=== PATIENT | female | born 1975 | race Hispanic/Latino ===

== ENCOUNTER 2017-06-07 16:54 | Emergency (ER) | payer MEDICAID ==
[2017-06-07 17:10] VITALS: BMI 40.1
[2017-06-07 17:13] VITALS: RESP 18; TEMP 97.8; O2SAT 98
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
[2017-06-07] MEDS ORDERED: Amoxicillin-Clav 875-125 mg Tab PO STA (17:30)
[2017-06-07] MEDS ORDERED: Amoxicillin-Clav 875-125 mg Tab PO ONE (17:44)
[2017-06-07] MEDS ORDERED: Bacitracin 500 Units/gm Oint Foilpak UD ONE (17:51)
[2017-06-07 17:57] VITALS: BP 126/75; PULSE 72
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
== END 2017-06-07 17:57 | disposition home or self-care (01) ==
LOC: C.ER 16:54
DX: S61.411A Laceration without foreign body of right hand, initial encounter (principal); W26.0XXA Contact with knife, initial encounter

== ENCOUNTER 2018-01-18 16:21 | Emergency (ER) | payer MEDICAID, OTHER ==
[2018-01-18 16:21] VITALS: BMI 40.9
[2018-01-18] MEDS ORDERED: Iohexol 240 (50 ml) PO STA (17:01)
[2018-01-18] MEDS ORDERED: Sodium Chloride 0.9% 1,000 ML IV ONE (17:01)
[2018-01-18 17:23] LABS: BASO # 0.1 K/uL (0.0-0.2); BASO % 0.5 % (0.0-2.0); EOS % 0.2 % (0.0-4.0); HEMOGLOBIN 13.2 g/dL (11.0-16.0); LYMPH % 14.1 % (20.0-40.0); MEAN CELL VOLUME 82.1 fL (81.0-99.0); MEAN CORPUSCULAR HEMOGLOBIN 27.9 pg (27.0-31.0); MEAN PLATELET VOLUME 7.6 fL (7.2-11.7); MONO # 0.6 K/uL (0.0-0.8); MONO % 4.2 % (0.0-10.0); NEUT # 11.2 K/uL (1.8-7.0); NRBC % 0.1 % (0.0-2.0); RBC 4.74 Mil/uL (3.80-5.20); WHITE BLOOD COUNT 13.9 K/uL (4.8-10.8)
[2018-01-18] MEDS ORDERED: Iohexol 240 (50 ml) ONE (17:34)
[2018-01-18] MEDS ORDERED: Sodium Chloride 0.9% 1,000 ML ONE (17:35)
--- NOTE | 2018-01-18 17:36 | C.PDOC ---
History Of Present Illness <NovaRoxana A - Last Filed: 01/18/18 18:47> <Ariane Bridges - Last Filed: 01/18/18 21:36> 42 y/o female with history of Endometriosis presents to ED sent by Dr. Church to rule out appendicitis. Patient states she has been having nausea, vomiting, fever and abdominal pain for 1 day. Patient has had surgery in past for Endometriosis and denies back pain, dysuria, diarrhea or any other complaints at this time. (Roxana Bhatt) History Per: Patient History/Exam Limitations: no limitations Onset/Duration Of Symptoms: Days Current Symptoms Are (Timing): Still Present Location Of Pain/Discomfort: Suprapubic <Roxana Bhatt - Last Filed: 01/18/18 18:47> <Ariane Bridges - Last Filed: 01/18/18 21:36> Time Seen by Provider: 01/18/18 16:55 Chief Complaint (Nursing): Abdominal Pain Past Medical History Reviewed: Historical Data, Nursing Documentation, Vital Signs - Medical History PMH: HTN Surgical History: No Surg Hx Family History: States: No Known Family Hx - Social History Hx Tobacco Use: No Hx Alcohol Use: Yes Hx Substance Use: No - Immunization History Hx Tetanus Toxoid Vaccination: Yes Hx Influenza Vaccination: No Hx Pneumococcal Vaccination: No <Roxana Bhatt - Last Filed: 01/18/18 18:47> Vital Signs: Last Vital Signs Temp 99.8 F H 01/18/18 20:53 Pulse 100 H 01/18/18 20:53 Resp 20 01/18/18 20:53 BP 95/57 L 01/18/18 20:53 Pulse Ox 100 01/18/18 20:53 Review Of Systems Constitutional: Positive for: Fever. Negative for: Chills Gastrointestinal: Positive for: Nausea, Vomiting, Abdominal Pain Genitourinary: Negative for: Dysuria, Vaginal Bleeding Skin: Negative for: Rash <Roxana Bhatt - Last Filed: 01/18/18 18:47> Physical Exam - Physical Exam Appears: Non-toxic, No Acute Distress Skin: Warm, Dry, No Rash Head: Atraumatic, Normacephalic Eye(s): bilateral: Normal Inspection Oral Mucosa: Moist Neck: Normal ROM, Supple Cardiovascular: Rhythm Regular Respiratory: Normal Breath Sounds, No Rales, No Rhonchi, No Wheezing Gastrointestinal/Abdominal: Soft, Tenderness (diffuse low abdominal), No Guarding, No Rebound Back: No CVA Tenderness, No Paraspinal Tenderness Neurological/Psych: Oriented x3, Normal Speech, Normal Cognition <Roxana Bhatt - Last Filed: 01/18/18 18:47> ED Course And Treatment - Laboratory Results Result Diagrams: 01/18/18 17:18 01/18/18 17:18 O2 Sat by Pulse Oximetry: 96 (RA) Pulse Ox Interpretation: Normal <Roxana Bhatt - Last Filed: 01/18/18 18:47> - Laboratory Results Result Diagrams: 01/18/18 17:18 01/18/18 17:18 Lab Interpretation: Abnormal (WBC 13.9) - CT Scan/US CT abd/pelvis' Other Rad Studies (CT/US): Read By Radiologist, Radiology Report Reviewed CT/US Interpretation: EXAM: CT Abdomen and Pelvis With Intravenous Contrast. CLINICAL HISTORY: 42 years old, female; Pain; Abdominal pain; Generalized. TECHNIQUE: Axial computed tomography images of the abdomen and pelvis with intravenous. contrast. All CT scans at this facility use at least one of these dose optimization techniques: automated exposure control; mA and/or kV adjustment per patient size (includes targeted exams. where dose is matched to clinical indication); or iterative reconstruction. Coronal and sagittal. reformatted images were created and reviewed. CONTRAST: 100 mL of VISIPAQUE was administered intravenously. COMPARISON: No relevant prior studies available. FINDINGS: Lung bases: Unremarkable. No mass. No consolidation. ABDOMEN: Liver: Unremarkable. No mass. Gallbladder and bile ducts: Unremarkable. No calcified stones. No ductal dilation. Pancreas: Unremarkable. No mass. No ductal dilation. Spleen: Unremarkable. No splenomegaly. Adrenals: Unremarkable. No mass. Kidneys and ureters: 5.4 cm simple-appearing left renal cyst. Large simple cyst upper pole left kidney. Probable tiny nonobstructing stone mid right kidney. Stomach and bowel: Unremarkable. No obstruction. No mucosal thickening. PELVIS: Appendix: Normal appendix. Bladder: Unremarkable. No mass. Reproductive: Unremarkable as visualized. ABDOMEN and PELVIS: Intraperitoneal space: Free fluid in the low pelvis possibly physiologic. No free air. Bones/joints: No acute fracture. No dislocation. Soft tissues: Unremarkable. Vasculature: Unremarkable. No abdominal aortic aneurysm. Lymph nodes: Scattered retroperitoneal lymph nodes within normal limits in size. IMPRESSION: 5.4 cm simple-appearing left renal cyst. Free fluid in the pelvis adjacent to the left ovary which may. be physiologic related to rupture of a cyst. Ultrasound evaluation could be performed if indicated. Reevaluation Time: 21:31 Reassessment Condition: Improved (but still having bilateral lower pelvic pain. Patient states that she has an appt with Dr Agee next week for evaluation of a large ovarian cyst.) <Ariane Bridges - Last Filed: 01/18/18 21:36> Disposition - Disposition Disposition Time: 19:00 - POA Present On Arrival: None <Roxana Bhatt - Last Filed: 01/18/18 18:47> - Disposition Disposition Time: 21:33 <Ariane Bridges - Last Filed: 01/18/18 21:36> - Disposition Referrals: Jean Paul Agee MD [Staff Provider] - Disposition: HOME/ ROUTINE Condition: STABLE Prescriptions: Naproxen [Naprosyn] 1 tab PO BID PRN #25 tab PRN Reason: Pain Instructions: Acute Pelvic Pain (DC) Forms: [employer] (Mongolian) - Clinical Impression Clinical Impression: Pelvic pain - PA / QUALITY ASSURANCE / Resident Statement MD/DO has reviewed & agrees with the documentation as recorded. - Scribe Statement The provider has reviewed the documentation as recorded by the Scribe <Roxana Bhatt - Last Filed: 01/18/18 18:47> <Ariane Bridges - Last Filed: 01/18/18 21:36> - Scribe Statement Sidra Dahl \ All medical record entries made by the Scribe were at my direction and personally dictated by me. I have reviewed the chart and agree that the record accurately reflects my personal performance of the history, physical exam, medical decision making, and the department course for this patient. I have also personally directed, reviewed, and agree with the discharge instructions and disposition. (Roxana Bhatt) Physician Patient Turnover Patient Signed Over To: Ariane Bridges Handoff Comments: Pending CT abdomen/pelvis. R/O AP <Roxana Bhatt - Last Filed: 01/18/18 18:47>
[2018-01-18 17:48] LABS: ALB/GLOB RATIO 1.3 (1.0-2.1); ALBUMIN 4.4 g/dL (3.5-5.0); ALT/SGPT 27 U/L (9-52); AST/SGOT 15 U/L (14-36); BLOOD UREA NITROGEN 15 mg/dL (7-17); CALCIUM 9.1 mg/dl (8.6-10.4); GFR AFRICAN-AMERICAN > 60; GFR NON-AFRICAN AMERICAN > 60; LIPASE 32 U/L (23-300)
[2018-01-18 17:48] LABS: SQUAMOUS EPITHIAL 13 /hpf (0-5); URINE BILIRUBIN NEGATIVE (NEGATIVE); URINE BLOOD NEGATIVE (NEGATIVE); URINE CLARITY Clear (Clear); URINE COLOR Amber (YELLOW); URINE GLUCOSE (UA) NORMAL (Normal); URINE LEUKOCYTE ESTERASE NEG Leu/uL (Negative); URINE PROTEIN NEGATIVE (NEGATIVE); URINE UROBILINOGEN NORMAL mg/dL (0.2-1.0)
[2018-01-18 17:50] LABS: HCG,QUALITATIVE URINE NEGATIVE (NEGATIVE)
[2018-01-18] MEDS ORDERED: Iodixanol 320 MG/ML 100 ML BOTTLE IV ONE (18:14)
[2018-01-18] MEDS ORDERED: Morphine 4 MG/ML VIAL ONE (18:46)
[2018-01-18 21:46] VITALS: BP 104/63; PULSE 105; RESP 18; TEMP 101.1; O2SAT 99
[2018-01-18] MEDS ORDERED: cefTRIAXone 1 gm in Water For Injection 2.1 ML IM ONE (21:52)
--- NOTE | 2018-01-19 09:17 | CT ---
PROCEDURE: CT Abdomen and Pelvis without intravenous contrast HISTORY: Abdominal pain COMPARISON: None. TECHNIQUE: Multiple contiguous axial images were performed through the abdomen and pelvis with intravenous contrast. Subsequently, sagittal and coronal reformatted images were obtained. Radiation dose: Total exam DLP = 1258 mGy-cm. This CT exam was performed using one or more of the following dose reduction techniques: Automated exposure control, adjustment of the mA and/or kV according to patient size, and/or use of iterative reconstruction technique. FINDINGS: LOWER THORAX: Unremarkable. LIVER: Unremarkable. No gross lesion or ductal dilatation. GALLBLADDER AND BILE DUCTS: Unremarkable. PANCREAS: Unremarkable. No gross lesion or ductal dilatation. SPLEEN: Unremarkable. ADRENALS: Unremarkable. No mass. KIDNEYS AND URETERS: 7.1 centimeter simple appearing left renal cyst. Large simple cyst in the upper pole of the left kidney. Probable 3.8 millimeter nonobstructing calculus in the right kidney. VASCULATURE: Unremarkable. No aortic aneurysm. BOWEL: Unremarkable. No obstruction. No gross mural thickening. APPENDIX: Unremarkable. Normal appendix. PERITONEUM: Moderate amount of free fluid fluid in the pelvis. LYMPH NODES: Scattered retroperitoneal lymph nodes, mildly prominent. BLADDER: Unremarkable. REPRODUCTIVE: Heterogeneous uterus and endometrium. Left adnexa appears prominent measuring up to 9 centimeters in length. Suggestion of a 5.4 centimeter left adnexal cystic lesion which may be a complex cystic lesion. Associated hydrosalpinx and or tubo-ovarian abscess cannot be excluded. Correlation with pelvic ultrasound is recommended for further evaluation if clinically indicated. BONES: No acute fracture. OTHER FINDINGS: None. IMPRESSION: 1. Left adnexa appears prominent measuring up to 9 centimeters in length. Suggestion of a 5.4 centimeter left adnexal cystic lesion which may be a complex cystic lesion. Associated hydrosalpinx and or tubo-ovarian abscess cannot be excluded. Correlation with pelvic ultrasound is recommended for further evaluation if clinically indicated. 2. Free fluid in the pelvis adjacent to the left ovary. Ultrasound evaluation may be performed if clinically indicated. 3. Probable 3.8 millimeter nonobstructing calculus in the right kidney. 4. 7.1 centimeter simple appearing left renal cyst. 5. Additional findings as above. These findings were preliminarily reported at 08:59 p.m. on 01/18/[address] Christopher Boudreaux from [employer].
== END 2018-01-18 22:13 | disposition home or self-care (01) ==
LOC: C.ER 16:21
DX: R10.2 Pelvic and perineal pain (principal); I10 Essential (primary) hypertension
CPT/HCPCS: 74177; 80053; 81001; 83690; 84703; 85025; 96361; 96372; 96374; 96375; 99285; J0696; J1885; J2270; J7030; Q9966; Q9967

== ENCOUNTER 2018-01-30 00:04 | Emergency (ER) | payer MEDICAID ==
[2018-01-30 00:05] VITALS: BMI 40.9
[2018-01-30 00:16] VITALS: O2SAT 97
[2018-01-30] MEDS ORDERED: Sodium Chloride 0.9% 1,000 ML IV ONE (00:49)
--- NOTE | 2018-01-30 00:49 | C.PDOC ---
History Of Present Illness 42 year old female with PMHx of endometriosis, ovarian cysts presents to the ED c/o abdominal pain, vomiting and fever. Patient was seen in the ED 2 weeks ago for lower abdominal pain, noted to have left ovarian cysts and some free fluid. Patient has since been seen by her TIMBER CRUISER who was planning on performing a total hysterectomy this week. Patient reports she has an appointment to see her TIMBER CRUISER tomorrow. Patient reports abdominal pain and vomiting became severe. Patient state she has not been able to keep anything down for the past 10 days and her temperature at home was 102. Patient denies diarrhea, back pain, vaginal bleeding, vaginal discharge, weakness, numbness. Chief Complaint (Nursing): Fever History Per: Patient History/Exam Limitations: no limitations Onset/Duration Of Symptoms: Days Current Symptoms Are (Timing): Still Present Sick Contacts (Context): None Associated Symptoms: Fever, Vomiting Ear Symptoms: Bilateral: None Recent travel outside of the [place]: No Additional History Per: Patient Past Medical History Reviewed: Historical Data, Nursing Documentation, Vital Signs Vital Signs: Last Vital Signs Temp 99.3 F 01/30/18 04:23 Pulse 91 H 01/30/18 04:23 Resp 20 01/30/18 04:23 BP 98/66 L 01/30/18 04:23 Pulse Ox 97 01/30/18 04:50 - Medical History PMH: HTN Denies: Chronic Kidney Disease Other PMH: endomitriosis Surgical History: No Surg Hx Family History: States: Unknown Family Hx - Social History Hx Tobacco Use: No Hx Alcohol Use: Yes Hx Substance Use: No - Immunization History Hx Tetanus Toxoid Vaccination: Yes Hx Influenza Vaccination: No Hx Pneumococcal Vaccination: No Review Of Systems Constitutional: Positive for: Fever. Negative for: Chills Cardiovascular: Negative for: Chest Pain, Palpitations Respiratory: Negative for: Cough, Shortness of Breath Gastrointestinal: Positive for: Vomiting, Abdominal Pain Genitourinary: Negative for: Vaginal Discharge, Vaginal Bleeding Musculoskeletal: Negative for: Back Pain Skin: Negative for: Rash Physical Exam - Physical Exam Appears: Non-toxic, No Acute Distress, Other (morbidly obese) Skin: Normal Color, Warm, Dry, Other (flushed face ) Head: Atraumatic, Normacephalic Eye(s): bilateral: Normal Inspection Oral Mucosa: Moist Neck: Normal ROM, No Midline Cervical Tenderness, Supple Chest: Symmetrical Cardiovascular: Rhythm Regular (tachy) Respiratory: Normal Breath Sounds, No Rales, No Rhonchi, No Wheezing Gastrointestinal/Abdominal: Soft, Tenderness (diffuse lower abdomen worse right than left), No Guarding, No Rebound, Other (obese) Back: No CVA Tenderness Extremity: Normal ROM, No Tenderness, Capillary Refill (< 2 seconds), No Swelling Pulses: Left Dorsalis Pedis: Normal, Right Dorsalis Pedis: Normal Neurological/Psych: Oriented x3, Normal Speech Gait: Steady ED Course And Treatment - Laboratory Results Result Diagrams: 01/30/18 01:22 01/30/18 01:22 O2 Sat by Pulse Oximetry: 97 (ON RA) Pulse Ox Interpretation: Normal - CT Scan/US CT abd/pelvis Other Rad Studies (CT/US): Read By Radiologist, Radiology Report Reviewed CT/US Interpretation: EXAM: CT Abdomen and Pelvis With Intravenous Contrast. EXAM DATE/TIME: 01/30/2018 12:50 AM. CLINICAL HISTORY: 42 years old, female; Pain; Abdominal pain; Other: Pelvic pain/ fever; Additional info: Abd pain. TECHNIQUE: Axial computed tomography images of the abdomen and pelvis with intravenous contrast. All CT. scans at this facility use at least one of these dose optimization techniques: automated exposure. control; mA and/or kV adjustment per patient size (includes targeted exams where dose is matched to. clinical indication); or iterative reconstruction. CONTRAST: 100 mL of Visipaque 320 administered intravenously. COMPARISON: Prior CT abdomen and pelvis of 2018-01-18 20:29. FINDINGS: LUNG BASES: No significant abnormality seen. ABDOMEN: LIVER: No acute abnormality of the liver identified. GALLBLADDER AND BILE DUCTS: No CT evidence of acute cholecystitis. No evidence of. significant biliary ductal dilatation. PANCREAS: No CT evidence of acute pancreatitis. SPLEEN: No acute abnormality of the spleen identified. ADRENALS : No acute abnormality of the adrenal glands identified. KIDNEYS AND URETERS: Mild left hydroureteronephrosis, as well as a mildly delayed left. nephrogram, new findings since the prior CT. Findings are most likely secondary to obstruction of the. MARCELO COLLAZO Accession: left distal ureter, by the large left adnexal mass. No definite obstructing left ureteral stones are seen. Low density probable cyst in the left kidney. Tiny, nonobstructing right renal stone. STOMACH AND BOWEL: No acute abnormality of the stomach, small bowel or colon identified. No. evidence of bowel obstruction. PELVIS: APPENDIX: Appendix is seen, and is within normal limits in appearance. BLADDER : No acute abnormality of the bladder identified. REPRODUCTIVE: Bilateral large complex cystic adnexal masses. The left adnexal mass measures. 13 x 9 x 9 cm maximally, and the right adnexal mass measures 10 x 8 x 7 cm maximally. These. masses are multiseptate and have tubular configurations in some areas. They are enlarged. compared to the previous exams. There is mild stranding of the adjacent fat. Bilateral tubo-ovarian. abscesses are suspected. No associated gas. No acute abnormality of the uterus identified. ABDOMEN and PELVIS: INTRAPERITONEAL SPACE: No evidence of free intraperitoneal air or fluid. BONES/JOINTS: No acute fractures or other acute bony abnormality noted. SOFT TISSUES: No acute abnormality of the visualized soft tissues is seen. VASCULATURE: No evidence of abdominal aortic aneurysm. No evidence of periaortic. hemorrhage. LYMPH NODES: Mild, diffuse retroperitoneal lymphadenopathy. Most of the lymph nodes seen are. small in size, however, the number present is abnormal. This is most likely reactive in etiology. No. evidence of diffuse pathologic lymphadenopathy. IMPRESSION: - LARGE BILATERAL COMPLEX CYSTIC ADNEXAL MASSES, THE LARGER, ON THE LEFT,. MEASURING 13 X 9 X 9 CM. THESE ARE ENLARGED COMPARED TO A 01/18/2018 EXAM,. AND THERE IS ADJACENT PELVIC FAT STRANDING. THEY ARE SUSPICIOUS FOR. BILATERAL TUBO-OVARIAN ABSCESSES. - Mild left hydroureteronephrosis, a new finding, most likely due to obstruction of the left. distal ureter by the large left adnexal mass. - See above for remaining findings. Thank you for allowing us to participate in the care of your patient. Dictated and Authenticated by: Roxann Vázquez MD. 01/30/2018 4:21 AM Eastern Time ([place] & [place]) Against Medical Advice - AMA Patient Left Against Medical Advice: The patient declines admission to the hospital and wishes to leave the Emergency Department. This action is against my medical advice. This decision was made with informed refusal. The patient was told that admission to the hospital is necessary. Explanation of the reasons why were discussed. The risks of leaving were explained to the patient and include, but are not limited to, worsening of known or currently unknown conditions, permanent disability and from undiagnosed or untreated conditions. The patient has the capacity to make this informed decision and understands my explanation of the current medical problem and risks of leaving. The patient voluntarily accepts these risks and signed an AMA form documenting our conversation. The patient was given the opportunity to ask questions and reconsider. The patient was encouraged to return to the Emergency Department at any time for further care. Medical Decision Making Medical Decision Making: Impression: endomitriosis with protracted vomiting, posisble PID, sepsis, tubal ovarian abscess Plan: * CT abd/pelvis * Labs * Morphine 4 mg IVP * IV fluids * Zofran 4 mg IVP * Blood culture * UA * Pt noted to have bilateral tuboovarian abscesses on CT.She was offered admission as well as transfer as her computer assembler is at [facility] .She refuses,says she has an appt with her computer assembler tomorrow and will sign out AMA.She is aware that her decision could mean sepsis and possible .Pt agrees to accept IV zosyn times 1 dose Disposition - Disposition Referrals: Miguel Church MD [Primary Care Provider] - Disposition: AGAINST MEDICAL ADVICE Disposition Time: 04:52 Condition: FAIR Forms: [employer] (Japanese) - Clinical Impression Clinical Impression: Tubo-ovarian abscess - Scribe Statement The provider has reviewed the documentation as recorded by the Scribe Justen Herndon All medical record entries made by the Scribe were at my direction and personally dictated by me. I have reviewed the chart and agree that the record accurately reflects my personal performance of the history, physical exam, medical decision making, and the department course for this patient. I have also personally directed, reviewed, and agree with the discharge instructions and disposition.
[2018-01-30 01:25] LABS: BASO # 0.1 K/uL (0.0-0.2); BASO % 0.3 % (0.0-2.0); EOS % 0.2 % (0.0-4.0); HEMOGLOBIN 10.6 g/dL (11.0-16.0); LYMPH # 2.3 K/uL (1.0-4.3); MEAN CELL VOLUME 80.7 fL (81.0-99.0); MEAN CORPUSCULAR HEMOGLOBIN 27.2 pg (27.0-31.0); MEAN CORPUSCULAR HGB CONC 33.7 g/dL (33.0-37.0); MEAN PLATELET VOLUME 7.4 fL (7.2-11.7); MONO # 1.1 K/uL (0.0-0.8); MONO % 5.7 % (0.0-10.0); NEUT # 15.7 K/uL (1.8-7.0); NEUT % 81.8 % (50.0-75.0); RBC 3.9 Mil/uL (3.80-5.20); RED CELL DISTRIBUTION WIDTH 13.4 % (11.5-14.5); WHITE BLOOD COUNT 19.2 K/uL (4.8-10.8)
[2018-01-30] MEDS ORDERED: Morphine 4 MG/ML VIAL ONE (01:26)
[2018-01-30 01:39] LABS: ALB/GLOB RATIO 1.1 (1.0-2.1); ALBUMIN 3.8 g/dL (3.5-5.0); ALT/SGPT 36 U/L (9-52); AST/SGOT 20 U/L (14-36); BLOOD UREA NITROGEN 11 mg/dL (7-17); CALCIUM 9.2 mg/dl (8.6-10.4); GFR AFRICAN-AMERICAN > 60; GFR NON-AFRICAN AMERICAN > 60; LIPASE 23 U/L (23-300)
[2018-01-30 02:19] LABS: HCG,QUALITATIVE URINE NEGATIVE (NEGATIVE)
[2018-01-30 02:20] LABS: SQUAMOUS EPITHIAL 6 /hpf (0-5); URINE BILIRUBIN NEGATIVE (NEGATIVE); URINE BLOOD 3+ (NEGATIVE); URINE GLUCOSE (UA) NORMAL (Normal); URINE LEUKOCYTE ESTERASE 3+ Leu/uL (Negative); URINE PROTEIN 2+ mg/dL (NEGATIVE); URINE UROBILINOGEN NORMAL mg/dL (0.2-1.0)
[2018-01-30 02:21] LABS: URINE CLARITY TURBID (Clear); URINE COLOR RED (YELLOW)
[2018-01-30] MEDS ORDERED: Iodixanol 320 MG/ML 100 ML BOTTLE IV ONE (02:29)
[2018-01-30 04:28] VITALS: BP 98/66; PULSE 91; RESP 20; TEMP 99.3
[2018-01-30] MEDS ORDERED: Piperacillin/Tazobact 2.25 gm Inj IV STA (04:32)
[2018-01-30] MEDS ORDERED: Piperacillin/Tazobact 3.375 gm 100 ML IVPB ONE (04:40)
--- NOTE | 2018-01-30 08:56 | CT ---
PROCEDURE: CT Abdomen and Pelvis without intravenous contrast HISTORY: Abdominal pain COMPARISON: CT abdomen and pelvis dated 01/18/2015 TECHNIQUE: Multiple contiguous axial images were performed through the abdomen and pelvis with the use of intravenous contrast. Subsequently, sagittal and coronal reformatted images were obtained. Radiation dose: Total exam DLP = 1212 mGy-cm. This CT exam was performed using one or more of the following dose reduction techniques: Automated exposure control, adjustment of the mA and/or kV according to patient size, and/or use of iterative reconstruction technique. FINDINGS: LOWER THORAX: Unremarkable. LIVER: Unremarkable. No gross lesion or ductal dilatation. GALLBLADDER AND BILE DUCTS: Unremarkable. PANCREAS: Unremarkable. No gross lesion or ductal dilatation. SPLEEN: Unremarkable. ADRENALS: Unremarkable. No mass. KIDNEYS AND URETERS: Mild left hydroureteronephrosis as well as a mildly delayed left nephrogram. These findings are concerning for an obstruction of the left distal ureter by large left adnexal mass. 3 millimeter nonobstructing right renal calculus. 6.8 centimeter low-attenuation lesion in the left kidney demonstrating a Hounsfield unit attenuation of 9 suggestive for a cyst. VASCULATURE: Unremarkable. No aortic aneurysm. BOWEL: Unremarkable. No obstruction. No gross mural thickening. APPENDIX: Grossly preserved. PERITONEUM: Moderate amount of free fluid within the pelvic cul-de-sac. LYMPH NODES: Mild diffuse retroperitoneal lymphadenopathy. Most lymph nodes seen are shoddy however number present is abnormal. This is most likely reactive in etiology. BLADDER: Unremarkable. REPRODUCTIVE: Bilateral large complex cystic adnexal masses. The left adnexal mass measures 13 x 9 x 9 centimeters maximally and the right adnexal mass measures 10 x 8 x 7 centimeters maximally. These masses are multi septated and tubular in configuration in some areas. Enlarged compared to the prior exams. Mild stranding of the adjacent fat. Bilateral tubo-ovarian abscesses are suspected. Additional etiologies not excluded. BONES: Degenerative changes. OTHER FINDINGS: None. IMPRESSION: Large bilateral complex cystic adnexal masses, the larger, on the left, measuring 13 x 9 x 9 centimeters. These are enlarged compared to 01/18/2018. Adjacent pelvic fat stranding. These are concerning for possible tubo-ovarian abscesses. Additional etiologies not excluded. Clinical correlation. Interval follow-up is recommended. Mild left hydroureteronephrosis likely secondary an obstruction of the left distal ureter by the large left adnexal mass. Additional findings as above. These findings were preliminarily reported at 4:21 a.[address]. on 01/30/[address] Roxann Vázquez from [facility].
== END 2018-01-30 04:30 | disposition left against medical advice (07) ==
LOC: SUPCPDRO 00:04 → C.ER 00:04
DX: N70.93 Salpingitis and oophoritis, unspecified (principal); I10 Essential (primary) hypertension
CPT/HCPCS: 74177; 80053; 81001; 83605; 83690; 84703; 85025; 87040; 96374; 96375; 99285; J2270; J2405; J2543; J7030; Q9967

== ENCOUNTER 2018-12-05 14:02 | Outpatient (CLI) | payer MEDICAID | END 2018-12-05 14:03 | disposition home or self-care (01) | LOC: C.RADH 14:02 ==